=== PATIENT | male | born 1990 | race Caucasian/White ===

== ENCOUNTER 2022-04-03 00:26 | Inpatient (IN) ==
[2022-04-03 02:01] LABS: Basophils # 0.1 10*3/uL (0.0-0.2); Basophils % 1.2 % (0.0-0.8); Eosinophils # 0.2 10*3/uL (0.0-0.87); Eosinophils % 2.4 % (0.00-10.9); Hematocrit 34.3 VOL% (42.0-52.0); Hemoglobin 11.4 GM/DL (14.0-18.0); Immature Granulocytes % 0.4 %; Immature Granulocytes Absolute 0.03 #; Lymphocytes # 2.3 10*3/uL (1.4-4.0); Lymphocytes % 30.4 % (21.2-54.2); Mean Corpuscular HGB Conc 33.2 GM/DL (32-36); Mean Corpuscular Volume 92.5 FL (87-102); Mean Platelet Volume 8.6 FL (9.6-12.0); Monocytes # 0.6 10*3/uL (0.11-0.8); Monocytes % 7.4 % (1.7-12.7); Neutrophils % 58.2 % (38.7-73.9); Platelet Count 264 T/CUMM (130-400); Red Blood Count 3.71 MC/CUMM (3.8-5.5); Red Cell Distribution Width 14.6 % (9.3-17.3); White Blood Count 7.6 T/CUMM (4-12)
[2022-04-03 02:12] LABS: PT Patient Result 11.2 SECS (10.1-12.1); Partial Thromboplastin Time 29.9 SECS (23.7-32.9)
[2022-04-03 02:21] LABS: Albumin 3.1 G/DL (3.4-5.0); Bilirubin,Total 0.4 MG/DL (0.20-1.00); Calcium 8.2 MG/DL (8.5-10.1); Osmolality,Calculated 276.4 MOS/KG (273-304); Potassium 3.3 MMOL/L (3.5-5.1); Total Protein 6.8 G/DL (6.4-8.2)
[2022-04-03] MEDS ORDERED: LACTULOSE 20 GM/30 ML UDCUP PO STA (03:35)
[2022-04-03] MEDS ORDERED: NICOTINE 21 MG/24 HR PATCH TRANSDERM PRN (03:48)
[2022-04-03] MEDS ORDERED: ONDANSETRON 4 MG/2 ML VIAL IV PRN (03:48)
[2022-04-03] MEDS ORDERED: ALUMINUM/MAGNES/SIMETH MAX STR 30 ML UDCUP PO PRN (03:48)
[2022-04-03] MEDS ORDERED: POTASSIUM CHLORIDE 20 MEQ TABLET PO ONE (04:27)
[2022-04-03 04:44] LABS: RBC,Urine 1 /HPF (0-4)
[2022-04-03 04:45] LABS: Bilirubin,Urine Negative (Negative); Blood, Urine Negative (Negative); Glucose,Urine (UA) Negative (Negative); Ketones,Urine Negative (Negative); Nitrite,Urine Negative (Negative); Protein,Urine Negative (Negative); Urine Appearance Clear (Clear); Urine Color Yellow (Yellow); Urine Specific Gravity 1.015 (1.001-1.035)
[2022-04-03 04:58] LABS: Barbiturates Screen,Urine Negative (Negative); Benzodiazepines Screen,Urine Negative (Negative); Cannabinoid Screen,Urine Negative (Negative); Opiate Screen,Urine Negative (Negative); Phencyclidine Screen,Urine Negative (Negative)
[2022-04-03] MEDS ORDERED: ceFAZolin 2,000 MG/50 ML DUPLEX IV SCH (05:00)
[2022-04-03] MEDS: DOCUSATE SODIUM 100 MG CAPSULE PO SCH ×2 (08:58→23:30)
[2022-04-03] MEDS: PANTOPRAZOLE 40 MG TABLET PO SCH (08:58)
[2022-04-03] MEDS: POTASSIUM CHLORIDE 20 MEQ TABLET PO SCH (08:58)
[2022-04-03] MEDS ORDERED: ENOXAPARIN 40 MG/0.4 ML SYRINGE SUBCUT SCH (09:00)
[2022-04-03] MEDS ORDERED: THIAMINE INJ 100 MG, FOLIC ACID INJ 1 MG, MAGNESIUM SULF INJ 2 GM, MULTIVITAMIN INJ 10 ... IV ONE (10:30)
[2022-04-03] MEDS: MULTIVITAMIN (CENTRUM) TABLET PO SCH (11:40)
[2022-04-03] MEDS: LACTULOSE 20 GM/30 ML UDCUP PO SCH ×3 (11:40→23:29)
[2022-04-03] MEDS: THIAMINE 100 MG TABLET PO SCH ×2 (11:40→23:28)
[2022-04-03] MEDS ORDERED: PIPERACILLIN/TAZOBACTAM 4,500 MG in SODIUM CHLORIDE 0.9% 100 ML IV SCH (13:00)
[2022-04-03] MEDS: PIPERACILLIN/TAZOBACTAM 3,375 MG in SODIUM CHLORIDE 0.9% 100 ML IV SCH ×2 (15:21→23:31)
[2022-04-03] MEDS: VANCOMYCIN INJ 1,250 MG in SODIUM CHLORIDE 0.9% 250 ML IV SCH (21:09)
[2022-04-03] MEDS: FOLIC ACID 1 MG TABLET PO SCH (23:28)
[2022-04-04] MEDS: LACTULOSE 20 GM/30 ML UDCUP PO SCH ×2 (04:46→09:35)
[2022-04-04 05:44] LABS: Basophils # 0.1 10*3/uL (0.0-0.2); Eosinophils # 0.2 10*3/uL (0.0-0.87); Eosinophils % 2.1 % (0.00-10.9); Hematocrit 30.8 VOL% (42.0-52.0); Hemoglobin 10.1 GM/DL (14.0-18.0); Immature Granulocytes % 0.5 %; Immature Granulocytes Absolute 0.04 #; Lymphocytes # 1.9 10*3/uL (1.4-4.0); Lymphocytes % 20.9 % (21.2-54.2); Mean Corpuscular HGB Conc 32.8 GM/DL (32-36); Mean Corpuscular Volume 93.6 FL (87-102); Mean Platelet Volume 8.6 FL (9.6-12.0); Monocytes # 0.8 10*3/uL (0.11-0.8); Monocytes % 8.8 % (1.7-12.7); Neutrophils % 66.7 % (38.7-73.9); Platelet Count 250 T/CUMM (130-400); Red Blood Count 3.29 MC/CUMM (3.8-5.5); White Blood Count 8.9 T/CUMM (4-12)
[2022-04-04 05:55] LABS: PT Patient Result 11.3 SECS (10.1-12.1)
[2022-04-04 05:58] LABS: Calcium 8.5 MG/DL (8.5-10.1); Osmolality,Calculated 272.7 MOS/KG (273-304); Potassium 3.5 MMOL/L (3.5-5.1)
[2022-04-04] MEDS: PIPERACILLIN/TAZOBACTAM 3,375 MG in SODIUM CHLORIDE 0.9% 100 ML IV SCH ×2 (06:24→15:21)
[2022-04-04 06:28] LABS: Albumin 2.5 G/DL (3.4-5.0); Bilirubin,Total 1.1 MG/DL (0.20-1.00); Calcium 8.2 MG/DL (8.5-10.1); Osmolality,Calculated 278.3 MOS/KG (273-304); Potassium 3.5 MMOL/L (3.5-5.1); Total Protein 5.7 G/DL (6.4-8.2)
[2022-04-04] MEDS: MULTIVITAMIN (CENTRUM) TABLET PO SCH (09:34)
[2022-04-04] MEDS: POTASSIUM CHLORIDE 20 MEQ TABLET PO SCH (09:34)
[2022-04-04] MEDS: DOCUSATE SODIUM 100 MG CAPSULE PO SCH (09:34)
[2022-04-04] MEDS: FOLIC ACID 1 MG TABLET PO SCH (09:35)
[2022-04-04] MEDS: PANTOPRAZOLE 40 MG TABLET PO SCH (09:35)
[2022-04-04] MEDS: THIAMINE 100 MG TABLET PO SCH (09:35)
[2022-04-04 11:30] VITALS: BP 132/84
[2022-04-04] MEDS: VANCOMYCIN INJ 1,250 MG in SODIUM CHLORIDE 0.9% 250 ML IV SCH (11:37)
[2022-04-04] MEDS ORDERED: POTASSIUM CHLORIDE 20 MEQ TABLET PO ONE (14:00)
== END 2022-04-04 14:35 | disposition home or self-care (01) | DRG 442 ==
LOC: N.3E 00:26 → N.ED 00:26 → N.3E 05:00 → SUATTDRO 13:00
PROVIDERS: ADMIT Internal Medicine; ATTEND Hospitalist

== ENCOUNTER 2022-04-30 07:33 | Inpatient (IN) ==
[2022-04-30] MEDS ORDERED: ONDANSETRON 4 MG/2 ML VIAL IV STA (08:03)
[2022-04-30] MEDS ORDERED: HYDROmorphone 1 MG/1 ML SYRINGE IV STA (08:03)
[2022-04-30] MEDS ORDERED: SODIUM CHLORIDE 0.9% 1,000 ML IV STA (08:03)
[2022-04-30] MEDS ORDERED: THIAMINE INJ 100 MG, FOLIC ACID INJ 1 MG, MAGNESIUM SULF INJ 2 GM, MULTIVITAMIN INJ 10 ... IV ONE (08:04)
[2022-04-30 08:28] LABS: Basophils % 0.2 % (0.0-0.8); Hemoglobin 12.8 GM/DL (14.0-18.0); Immature Granulocytes % 0.5 %; Immature Granulocytes Absolute 0.07 #; Lymphocytes # 0.8 10*3/uL (1.4-4.0); Lymphocytes % 5.7 % (21.2-54.2); Mean Corpuscular Volume 87.9 FL (87-102); Mean Platelet Volume 8.8 FL (9.6-12.0); Monocytes # 0.8 10*3/uL (0.11-0.8); Neutrophils % 87.6 % (38.7-73.9); Platelet Count 122 T/CUMM (130-400); Red Blood Count 4.55 MC/CUMM (3.8-5.5); Red Cell Distribution Width 15.5 % (9.3-17.3); White Blood Count 13.2 T/CUMM (4-12)
[2022-04-30 08:47] LABS: Albumin 3.3 G/DL (3.4-5.0); Bilirubin,Total 1.6 MG/DL (0.20-1.00); Calcium 8.7 MG/DL (8.5-10.1); Potassium 3.7 MMOL/L (3.5-5.1); Total Protein 7.3 G/DL (6.4-8.2)
[2022-04-30] MEDS ORDERED: MAGNESIUM SULF RIDER 4 GM/100 ML PREMIX IV PRN (09:01)
[2022-04-30] MEDS ORDERED: MAGNESIUM SULF RIDER 2 GM/50 ML PREMIX IV PRN (09:01)
[2022-04-30] MEDS ORDERED: DOCUSATE SODIUM 100 MG CAPSULE PO PRN (09:02)
[2022-04-30] MEDS ORDERED: SIMETHICONE CHEW 125 MG TABLET PO PRN (09:02)
[2022-04-30] MEDS ORDERED: NICOTINE 21 MG/24 HR PATCH TRANSDERM PRN (09:02)
[2022-04-30] MEDS ORDERED: hydrALAZINE 20 MG/1 ML VIAL IV PRN (09:02)
[2022-04-30] MEDS ORDERED: LACTULOSE 20 GM/30 ML UDCUP PO PRN (09:07)
[2022-04-30 09:15] LABS: INR 1.1; PT Patient Result 12.2 SECS (10.1-12.1); Partial Thromboplastin Time 30.5 SECS (23.7-32.9)
[2022-04-30] MEDS ORDERED: SUCCINYLCHOLINE 200 MG/10 ML VIAL ONE (10:14)
[2022-04-30] MEDS ORDERED: LIDOCAINE 2% 5 ML VIAL ONE (10:14)
[2022-04-30] MEDS ORDERED: propofoL 200 MG/20 ML VIAL IV ONE (10:14)
[2022-04-30] MEDS ORDERED: MIDAZOLAM 2 MG/2 ML VIAL ONE (10:14)
[2022-04-30] MEDS ORDERED: ROCURONIUM 50 MG/5 ML VIAL IV ONE (10:14)
[2022-04-30] MEDS ORDERED: fentaNYL 100 MCG/2 ML VIAL ONE ×2 (10:14→11:29)
[2022-04-30] MEDS ORDERED: BUPIVACAINE MPF 0.25% 10 ML VIAL ONE (10:22)
[2022-04-30] MEDS ORDERED: LIDOCAINE 1%/EPI INJ 20 ML VIAL ONE (10:22)
[2022-04-30] MEDS ORDERED: AMISULPRIDE 10 MG/4 ML VIAL IV ONE (10:30)
[2022-04-30 11:09] LABS: Barbiturates Screen,Urine Negative (Negative); Benzodiazepines Screen,Urine Negative (Negative); Cannabinoid Screen,Urine Negative (Negative); Mucus,Urine Moderate /LPF (Occasional); Opiate Screen,Urine Positive (Negative); Phencyclidine Screen,Urine Negative (Negative); RBC,Urine 10 /HPF (0-4); Urine Appearance Clear (Clear); Urine Color Dark Yellow (Yellow)
[2022-04-30 11:10] LABS: Bilirubin,Urine Small mg/dL (Negative); Blood, Urine Negative (Negative); Glucose,Urine (UA) Negative (Negative); Ketones,Urine 15 mg/dL (Negative); Nitrite,Urine Negative (Negative); Protein,Urine 30 mg/dL (Negative); Urine Urobilinogen 0.2 eU/dL (<2.0)
[2022-04-30] MEDS ORDERED: GLYCOPYRROLATE 0.4 MG/2 ML VIAL ONE (11:48)
[2022-04-30] MEDS ORDERED: NEOSTIGMINE 10 MG/10 ML VIAL ONE (11:48)
[2022-04-30] MEDS: LACTATED RINGERS 1,000 ML IV SCH ×3 (12:44→22:00)
[2022-04-30] MEDS: ALBUMIN 25% 25 GM/100 ML VIAL IV SCH ×2 (12:54→20:49)
[2022-04-30] MEDS: MORPHINE 2 MG/1 ML SYRINGE IV PRN ×3 (12:55→17:54)
[2022-04-30] MEDS: ALBUTEROL 2.5 MG/3 ML NEB RESP TX SCH ×3 (13:42→23:51)
[2022-04-30] MEDS: PANTOPRAZOLE 40 MG VIAL IV SCH (14:54)
[2022-04-30] MEDS ORDERED: HYDROmorphone 1 MG/1 ML SYRINGE IV ONE (20:09)
[2022-04-30] MEDS ORDERED: MELATONIN 3 MG TABLET PO PRN (20:09)
[2022-05-01] MEDS: HYDROmorphone 1 MG/1 ML SYRINGE IV PRN ×5 (03:45→21:43)
[2022-05-01 04:42] LABS: Basophils % 0.3 % (0.0-0.8); Eosinophils % 0.1 % (0.00-10.9); Hematocrit 34.7 VOL% (42.0-52.0); Immature Granulocytes % 0.5 %; Immature Granulocytes Absolute 0.05 #; Lymphocytes # 1.4 10*3/uL (1.4-4.0); Lymphocytes % 14.3 % (21.2-54.2); Mean Corpuscular HGB Conc 31.7 GM/DL (32-36); Mean Corpuscular Volume 88.1 FL (87-102); Mean Platelet Volume 9.5 FL (9.6-12.0); Monocytes # 0.9 10*3/uL (0.11-0.8); Monocytes % 9.2 % (1.7-12.7); Neutrophils % 75.6 % (38.7-73.9); Platelet Count 90 T/CUMM (130-400); Red Blood Count 3.94 MC/CUMM (3.8-5.5); Red Cell Distribution Width 15.4 % (9.3-17.3); White Blood Count 9.6 T/CUMM (4-12)
[2022-05-01] MEDS: ALBUMIN 25% 25 GM/100 ML VIAL IV SCH ×3 (04:57→21:43)
[2022-05-01 05:04] LABS: INR 1.3; PT Patient Result 13.8 SECS (10.1-12.1)
[2022-05-01 05:11] LABS: Platelet Estimate Decreased
[2022-05-01 05:17] LABS: Albumin 3.1 G/DL (3.4-5.0); Bilirubin,Total 1.9 MG/DL (0.20-1.00); Calcium 8.4 MG/DL (8.5-10.1); Osmolality,Calculated 264.4 MOS/KG (273-304); Potassium 3.3 MMOL/L (3.5-5.1); Risk Ratio 1.77; Thyroid Stimulating Hormone 2.4 uIU/ml (0.358-3.74); Total Protein 5.9 G/DL (6.4-8.2); VLDL Cholesterol 6.8 MG/DL
[2022-05-01] MEDS ORDERED: POTASSIUM CHLORIDE 20 MEQ TABLET PO PRN (06:10)
[2022-05-01] MEDS: LACTATED RINGERS 1,000 ML IV SCH ×2 (06:20→18:17)
[2022-05-01] MEDS: ALBUTEROL 2.5 MG/3 ML NEB RESP TX SCH ×3 (07:25→22:55)
[2022-05-01] MEDS: PANTOPRAZOLE 40 MG VIAL IV SCH (08:16)
[2022-05-02] MEDS: ALBUTEROL 2.5 MG/3 ML NEB RESP TX SCH ×2 (01:41→07:15)
[2022-05-02] MEDS: ONDANSETRON 4 MG/2 ML VIAL IV PRN ×2 (01:47→06:16)
[2022-05-02] MEDS: HYDROmorphone 1 MG/1 ML SYRINGE IV PRN ×2 (01:49→06:15)
[2022-05-02 05:54] LABS: Basophils % 0.2 % (0.0-0.8); Eosinophils # 0.1 10*3/uL (0.0-0.87); Eosinophils % 0.4 % (0.00-10.9); Hematocrit 35.5 VOL% (42.0-52.0); Hemoglobin 11.6 GM/DL (14.0-18.0); Immature Granulocytes % 0.7 %; Immature Granulocytes Absolute 0.08 #; Lymphocytes # 1.3 10*3/uL (1.4-4.0); Lymphocytes % 11.3 % (21.2-54.2); Mean Corpuscular HGB Conc 32.7 GM/DL (32-36); Mean Platelet Volume 10.1 FL (9.6-12.0); Monocytes # 1.1 10*3/uL (0.11-0.8); Monocytes % 9.9 % (1.7-12.7); Neutrophils % 77.5 % (38.7-73.9); Platelet Count 94 T/CUMM (130-400); Red Blood Count 4.08 MC/CUMM (3.8-5.5); Red Cell Distribution Width 15.3 % (9.3-17.3); White Blood Count 11.4 T/CUMM (4-12)
[2022-05-02] MEDS: ALBUMIN 25% 25 GM/100 ML VIAL IV SCH (06:15)
[2022-05-02 06:23] LABS: Albumin 3.5 G/DL (3.4-5.0); Bilirubin,Total 2.3 MG/DL (0.20-1.00); Calcium 8.9 MG/DL (8.5-10.1); Osmolality,Calculated 263.5 MOS/KG (273-304); Total Protein 6.1 G/DL (6.4-8.2)
[2022-05-02 06:59] LABS: Anisocytosis 1+; Platelet Estimate Decreased
[2022-05-02] MEDS ORDERED: KETOROLAC 15 MG/1 ML VIAL IV PRN (07:44)
[2022-05-02] MEDS ORDERED: SPIRONOLACTONE 100 MG TABLET PO SCH (09:00)
[2022-05-02] MEDS ORDERED: PANTOPRAZOLE 40 MG TABLET PO SCH (09:00)
[2022-05-02 11:20] VITALS: BP 127/78
== END 2022-05-02 12:23 | disposition home or self-care (01) | DRG 329 ==
LOC: N.ED 07:33 → N.ICU 10:25 → SUATTDRO 12:37 → N.3E 05-01 16:23
PROVIDERS: ADMIT Emergency Medicine; ATTEND Internal Medicine

== ENCOUNTER 2022-05-29 18:52 | Inpatient (IN) ==
[2022-05-29] MEDS ORDERED: SODIUM CHLORIDE 0.9% 1,000 ML IV STA (20:56)
[2022-05-29 22:07] LABS: Basophils % 0.2 % (0.0-0.8); Eosinophils # 0.1 10*3/uL (0.0-0.87); Eosinophils % 0.4 % (0.00-10.9); Hematocrit 21.4 VOL% (42.0-52.0); Immature Granulocytes Absolute 0.19 #; Lymphocytes # 1.8 10*3/uL (1.4-4.0); Lymphocytes % 8.9 % (21.2-54.2); Mean Corpuscular HGB Conc 32.7 GM/DL (32-36); Mean Corpuscular Volume 83.9 FL (87-102); Mean Platelet Volume 8.9 FL (9.6-12.0); Monocytes # 2.8 10*3/uL (0.11-0.8); Monocytes % 14.3 % (1.7-12.7); Neutrophils % 75.2 % (38.7-73.9); Platelet Count 323 T/CUMM (130-400); Red Blood Count 2.55 MC/CUMM (3.8-5.5); Red Cell Distribution Width 15.9 % (9.3-17.3); White Blood Count 19.63 T/CUMM (4-12)
[2022-05-29 22:27] LABS: Hyaline Casts,Urine 1 /LPF (0-3); Protein,Urine Trace mg/dL (Negative); RBC,Urine 1 /HPF (0-4); Urine Appearance Clear (Clear); Urine Color Yellow (Yellow); Urine Specific Gravity 1.015 (1.001-1.035); Urine pH 6.5 (4.5-8.0)
[2022-05-29 22:28] LABS: Bilirubin,Urine Negative (Negative); Blood, Urine Negative (Negative); Glucose,Urine (UA) 100 mg/dL (Negative); Ketones,Urine Trace mg/dL (Negative); Nitrite,Urine Negative (Negative)
[2022-05-29 22:30] LABS: Alanine Aminotransferase 21 U/L (16-61); Albumin 1.9 G/DL (3.4-5.0); Alkaline Phosphatase 221 U/L (45-117); Amylase 97 U/L (25-115); Aspartate Amino Transferase 24 U/L (0-37); Blood Urea Nitrogen 41 MG/DL (7-18); Calcium 8.5 MG/DL (8.5-10.1); Carbon Dioxide 26 MMOL/L (21-32); Chloride 91 MMOL/L (98-107); Glucose 110 MG/DL (74-106); Osmolality,Calculated 263.4 MOS/KG (273-304); Potassium 5.3 MMOL/L (3.5-5.1); Sodium 126 MMOL/L (136-145); Total Protein 6.6 G/DL (6.4-8.2)
[2022-05-29 22:37] LABS: INR 1.1; PT Patient Result 11.9 SECS (10.1-12.1); Partial Thromboplastin Time 39.9 SECS (23.7-32.9)
[2022-05-29 22:43] LABS: Lactic Acid 2.6 MMOL/L (0.4-2.0)
[2022-05-29 22:44] LABS: Barbiturates Screen,Urine Negative (Negative); Benzodiazepines Screen,Urine Negative (Negative); Cannabinoid Screen,Urine Positive (Negative); Opiate Screen,Urine Negative (Negative); Phencyclidine Screen,Urine Negative (Negative)
[2022-05-30] MEDS ORDERED: SODIUM CHLORIDE 0.9% 1,000 ML IV PRN (00:46)
[2022-05-30] MEDS: SODIUM CHLORIDE 0.9% 1,000 ML IV SCH ×3 (01:36→18:21)
[2022-05-30] MEDS: ONDANSETRON 4 MG/2 ML VIAL IV PRN ×3 (03:58→16:56)
[2022-05-30] MEDS: SPIRONOLACTONE 100 MG TABLET PO SCH (08:18)
[2022-05-30] MEDS: FUROSEMIDE 40 MG TABLET PO SCH (08:18)
[2022-05-30] MEDS: LACTULOSE 20 GM/30 ML UDCUP PO SCH ×2 (08:24→20:39)
[2022-05-30] MEDS ORDERED: PANTOPRAZOLE 40 MG TABLET PO SCH (09:00)
[2022-05-30 09:19] LABS: Basophils % 0.2 % (0.0-0.8); Eosinophils # 0.1 10*3/uL (0.0-0.87); Eosinophils % 0.9 % (0.00-10.9); Hemoglobin 8.7 GM/DL (14.0-18.0); Immature Granulocytes % 0.9 %; Immature Granulocytes Absolute 0.14 #; Lymphocytes # 1.6 10*3/uL (1.4-4.0); Lymphocytes % 10.4 % (21.2-54.2); Mean Corpuscular HGB Conc 33.5 GM/DL (32-36); Mean Corpuscular Volume 84.1 FL (87-102); Mean Platelet Volume 8.8 FL (9.6-12.0); Monocytes # 2.4 10*3/uL (0.11-0.8); Monocytes % 15.3 % (1.7-12.7); Neutrophils % 72.3 % (38.7-73.9); Platelet Count 299 T/CUMM (130-400); Red Blood Count 3.09 MC/CUMM (3.8-5.5); Red Cell Distribution Width 15.9 % (9.3-17.3); White Blood Count 15.39 T/CUMM (4-12)
[2022-05-30 09:41] LABS: Albumin 1.8 G/DL (3.4-5.0); Calcium 8.2 MG/DL (8.5-10.1); Osmolality,Calculated 261.1 MOS/KG (273-304); Potassium 4.7 MMOL/L (3.5-5.1); Total Protein 5.4 G/DL (6.4-8.2)
[2022-05-30] MEDS ORDERED: propofoL 200 MG/20 ML VIAL IV ONE (09:59)
[2022-05-30] MEDS ORDERED: PHENYLEPHRINE 1 MG/10 ML SYRINGE IV ONE (09:59)
[2022-05-30] MEDS ORDERED: LIDOCAINE 2% 5 ML VIAL ONE (09:59)
[2022-05-30] MEDS ORDERED: PROMETHAZINE 25 MG/1 ML VIAL IM PRN (11:19)
[2022-05-30] MEDS ORDERED: traMADol 50 MG TABLET PO ONE (11:20)
[2022-05-30] MEDS: PANTOPRAZOLE 40 MG TABLET PO SCH (20:39)
[2022-05-31] MEDS: SODIUM CHLORIDE 0.9% 1,000 ML IV SCH ×3 (01:59→14:54)
[2022-05-31 04:22] LABS: Basophils # 0.1 10*3/uL (0.0-0.2); Basophils % 0.4 % (0.0-0.8); Eosinophils # 0.2 10*3/uL (0.0-0.87); Eosinophils % 1.1 % (0.00-10.9); Hematocrit 26.9 VOL% (42.0-52.0); Hemoglobin 8.9 GM/DL (14.0-18.0); Immature Granulocytes % 0.9 %; Immature Granulocytes Absolute 0.12 #; Lymphocytes # 1.4 10*3/uL (1.4-4.0); Lymphocytes % 9.7 % (21.2-54.2); Mean Corpuscular HGB Conc 33.1 GM/DL (32-36); Mean Corpuscular Volume 84.1 FL (87-102); Mean Platelet Volume 8.6 FL (9.6-12.0); Monocytes # 1.9 10*3/uL (0.11-0.8); Monocytes % 13.1 % (1.7-12.7); Neutrophils % 74.8 % (38.7-73.9); Platelet Count 358 T/CUMM (130-400); Red Cell Distribution Width 15.6 % (9.3-17.3); White Blood Count 14.11 T/CUMM (4-12)
[2022-05-31 04:46] LABS: Albumin 1.8 G/DL (3.4-5.0); Bilirubin,Total 1.2 MG/DL (0.20-1.00); Calcium 8.8 MG/DL (8.5-10.1); Osmolality,Calculated 260.9 MOS/KG (273-304); Potassium 4.5 MMOL/L (3.5-5.1); Total Protein 6.4 G/DL (6.4-8.2)
[2022-05-31] MEDS: ONDANSETRON 4 MG/2 ML VIAL IV PRN ×3 (08:12→20:31)
[2022-05-31] MEDS: FUROSEMIDE 40 MG TABLET PO SCH (08:12)
[2022-05-31] MEDS: LACTULOSE 20 GM/30 ML UDCUP PO SCH ×2 (08:12→21:00)
[2022-05-31] MEDS: SPIRONOLACTONE 100 MG TABLET PO SCH (08:12)
[2022-05-31] MEDS: PANTOPRAZOLE 40 MG TABLET PO SCH ×2 (08:12→20:29)
[2022-06-01 05:00] LABS: Basophils # 0.1 10*3/uL (0.0-0.2); Basophils % 0.4 % (0.0-0.8); Eosinophils # 0.2 10*3/uL (0.0-0.87); Eosinophils % 1.6 % (0.00-10.9); Hematocrit 25.5 VOL% (42.0-52.0); Hemoglobin 8.3 GM/DL (14.0-18.0); Immature Granulocytes % 1.4 %; Immature Granulocytes Absolute 0.17 #; Lymphocytes # 1.9 10*3/uL (1.4-4.0); Lymphocytes % 15.7 % (21.2-54.2); Mean Corpuscular HGB Conc 32.5 GM/DL (32-36); Mean Corpuscular Volume 83.9 FL (87-102); Mean Platelet Volume 8.6 FL (9.6-12.0); Monocytes # 1.5 10*3/uL (0.11-0.8); Monocytes % 12.1 % (1.7-12.7); Neutrophils % 68.8 % (38.7-73.9); Platelet Count 393 T/CUMM (130-400); Red Blood Count 3.04 MC/CUMM (3.8-5.5); Red Cell Distribution Width 15.7 % (9.3-17.3); White Blood Count 12.32 T/CUMM (4-12)
[2022-06-01 05:26] LABS: Albumin 1.2 G/DL (3.4-5.0); Bilirubin,Total 0.8 MG/DL (0.20-1.00); Calcium 8.2 MG/DL (8.5-10.1); Osmolality,Calculated 261.7 MOS/KG (273-304); Total Protein 5.7 G/DL (6.4-8.2)
[2022-06-01] MEDS: SODIUM CHLORIDE 0.9% 1,000 ML IV SCH ×2 (08:49→10:54)
[2022-06-01] MEDS ORDERED: MAGNESIUM SULF RIDER 2 GM/50 ML PREMIX IV ONE (10:01)
[2022-06-01] MEDS: PANTOPRAZOLE 40 MG TABLET PO SCH ×2 (10:20→21:37)
[2022-06-01] MEDS: LACTULOSE 20 GM/30 ML UDCUP PO SCH ×2 (10:20→21:37)
[2022-06-01] MEDS: FUROSEMIDE 40 MG TABLET PO SCH (10:20)
[2022-06-01] MEDS: SPIRONOLACTONE 100 MG TABLET PO SCH (10:20)
[2022-06-01] MEDS ORDERED: PHENOL 1.4% THROAT SPRAY 177 ML BOTTLE PO PRN (10:26)
[2022-06-01] MEDS: ONDANSETRON 4 MG/2 ML VIAL IV PRN ×2 (11:01→21:36)
[2022-06-02 04:02] LABS: Basophils # 0.1 10*3/uL (0.0-0.2); Basophils % 0.6 % (0.0-0.8); Eosinophils # 0.2 10*3/uL (0.0-0.87); Eosinophils % 1.9 % (0.00-10.9); Hematocrit 24.7 VOL% (42.0-52.0); Hemoglobin 8.1 GM/DL (14.0-18.0); Immature Granulocytes % 1.2 %; Immature Granulocytes Absolute 0.15 #; Lymphocytes # 1.7 10*3/uL (1.4-4.0); Lymphocytes % 13.9 % (21.2-54.2); Mean Corpuscular HGB Conc 32.8 GM/DL (32-36); Mean Corpuscular Volume 83.7 FL (87-102); Mean Platelet Volume 8.5 FL (9.6-12.0); Monocytes # 1.4 10*3/uL (0.11-0.8); Monocytes % 11.2 % (1.7-12.7); Neutrophils % 71.2 % (38.7-73.9); Platelet Count 397 T/CUMM (130-400); Red Blood Count 2.95 MC/CUMM (3.8-5.5); Red Cell Distribution Width 15.6 % (9.3-17.3); White Blood Count 12.18 T/CUMM (4-12)
[2022-06-02 04:22] LABS: Calcium 8.2 MG/DL (8.5-10.1); Osmolality,Calculated 256.9 MOS/KG (273-304); Potassium 3.6 MMOL/L (3.5-5.1)
[2022-06-02] MEDS ORDERED: MAGNESIUM SULF RIDER 2 GM/50 ML PREMIX IV ONE (08:48)
[2022-06-02 09:14] LABS: % Iron Saturation 5.2 % (18-50); Ferritin 69.7 ng/mL (26-388)
[2022-06-02] MEDS: PANTOPRAZOLE 40 MG TABLET PO SCH (09:29)
[2022-06-02] MEDS: SPIRONOLACTONE 100 MG TABLET PO SCH (09:29)
[2022-06-02] MEDS: FUROSEMIDE 40 MG TABLET PO SCH (09:29)
[2022-06-02] MEDS: LACTULOSE 20 GM/30 ML UDCUP PO SCH (09:30)
[2022-06-02] MEDS ORDERED: FERRIC GLUCONATE COMPLEX 125 MG in SODIUM CHLORIDE 0.9% 100 ML IV SCH (10:30)
[2022-06-02 11:38] LABS: Folate 6.94 NG/ML (5.38-24.0)
[2022-06-02 12:27] LABS: Hematocrit 26.5 VOL% (42.0-52.0); Hemoglobin 8.6 GM/DL (14.0-18.0)
[2022-06-02 13:06] VITALS: BP 138/65
== END 2022-06-02 14:16 | disposition home or self-care (01) | DRG 432 ==
LOC: N.ED 18:52 → N.EDINP 05-30 00:37 → N.TELEN 05-30 03:32
PROVIDERS: ADMIT Internal Medicine; ATTEND Internal Medicine
PROC: EGDWEBL (ICD-10-PCS; 2022-05-30 09:30)